=== PATIENT | male | born 1970 | race Caucasian/White ===

== ENCOUNTER 2018-06-13 15:16 | Inpatient (IN) ==
--- NOTE | 2018-06-13 17:01 | ED ---
HPI General Chief complaint: Psychiatric Symptoms Stated complaint: Psych eval Time Seen by Provider: 06/13/18 16:01 History of Present Illness HPI narrative: Patient is a 48-year-old male presents emergency department for evaluation of auditory hallucinations for the past 2 days with suicidal ideation. Patient states the voices in his head are telling him to kill himself. He states his been diagnosed with bipolar and schizophrenia before. States his been off his meds for 3 months ever since he was seen in [facility] in [place] and then moved to a [facility] here in [facility]. States symptoms are severe, gradually worsening over the past 48 hours, associated signs symptoms in context as above. Denies any physical complaints, denies any chest pain shortness of breath abdominal pain nausea vomiting diarrhea constipation. Related Data Home Medications Medication Instructions Recorded Confirmed No Known Home Medications 06/13/18 06/13/18 Allergies Allergy/AdvReac Type Severity Reaction Status Date / Time No Known Allergies Allergy Verified 06/13/18 15:35 Review of Systems ROS: all other systems reviewed are negative PMFSH Social History Social History Substance History: Past History Second Hand Smoke Exposure: No Smoking Status: Never smoker How Often Do You Have a Drink Containing Alcohol: Never Recent Travel in [facility] within the Last 8 Weeks: No Recent Out of Country Travel within the Last 8 Weeks: No Immunization History Tetanus Immunization: Unsure Exam Narrative Exam Narrative: GENERAL: Well-developed well-nourished, no obvious distress. SKIN: Focused skin assessment warm/dry. HEAD: Atraumatic. Normocephalic. EYES: Pupils equal and round. No scleral icterus. No injection or drainage. ENT: No nasal bleeding or discharge. Mucous membranes pink and moist. NECK: Trachea midline. No JVD. CARDIOVASCULAR: Regular rate and rhythm. No murmur appreciated. RESPIRATORY: No accessory muscle use. Clear to auscultation. Breath sounds equal bilaterally. GASTROINTESTINAL: Abdomen soft, non-tender, nondistended. Hepatic and splenic margins not palpable. MUSCULOSKELETAL: No obvious deformities. No clubbing. No cyanosis. No edema. NEUROLOGICAL: Awake and alert. No obvious cranial nerve deficits. Motor grossly within normal limits. Normal speech. PSYCHIATRIC: Depressed mood, normal affect, insight and judgment fair, endorses suicidal ideation and auditory hallucinations. Course Initial Documented Vital Signs Temperature 97.9 F 06/13/18 15:33 Pulse Rate 73 06/13/18 15:33 Blood Pressure 144/85 H 06/13/18 15:33 Pulse Oximetry 97 06/13/18 15:33 Last Documented Vital Signs Temperature 97.9 F 06/13/18 15:33 Pulse Rate 73 06/13/18 15:33 Blood Pressure 144/85 H 06/13/18 15:33 Pulse Oximetry 97 06/13/18 15:33 Medical Decision Making MDM Narrative Medical decision making narrative: Patient seen and examined by me Dr. Sawyer, signs symptoms consistent with an acute psychosis. He is been here before diagnosed malingering. He is never been admitted. He wants to see a psychiatrist under voluntary status. I informed him that probably would not happen until tomorrow morning and he is understanding and will stay overnight. Basic labs been drawn according to psychiatric protocol with the patient does not have any medical complaints to warrant further workup. He is medically cleared for psychiatric evaluate Medical Screen Exam Complete: Yes Emergency Medical Condition: Yes Discharge Plan Discharge Disposition Patient Disposition: Sign Out(ED Internal Use Only) Physicians Team ED Provider: Dominic Sawyer Primary Care Provider: Primary Care Nancy Soares Rxs /Orders / Referrals /Forms Prescriptions: No Action No Known Home Medications RF: 0 Status ED Status: Medically Cleared
[2018-06-13 18:35] LABS: Baso # (Auto) 0.1 th/mm3 (0.0-0.2); Baso % (Auto) 0.8 % (0.0-2.0); Eos # (Auto) 0.2 th/mm3 (0.0-0.4); Eos % (Auto) 2.4 % (0.0-4.0); Hematocrit 47.5 % (39.0-51.0); Hemoglobin 16.4 gm/dL (13.0-17.0); Lymph # (Auto) 2.1 th/mm3 (1.0-4.8); Lymph % (Auto) 27.9 % (9.0-44.0); Mean Corpuscular HGB Conc 34.5 % (32.0-36.0); Mean Corpuscular Hemoglobin 31.1 pg (27.0-34.0); Mean Corpuscular Volume 90.2 fL (80.0-100.0); Mean Platelet Volume 9.3 fL (7.0-11.0); Mono # (Auto) 0.6 th/mm3 (0.0-0.9); Mono % (Auto) 7.6 % (0.0-8.0); Neut # (Auto) 4.7 th/mm3 (1.8-7.7); Neut % (Auto) 61.3 % (16.0-70.0); Platelet Count 245 th/mm3 (150-450); Red Blood Count 5.27 mil/mm3 (4.50-5.90); Red Cell Distribution Width 13.2 % (11.6-17.2); White Blood Count 7.6 th/mm3 (4.0-11.0)
[2018-06-13 18:49] LABS: Amphetamine Screen,Urine Neg (Neg); Barbiturate Screen,Urine Neg (Neg); Cannabinoid Screen,Urine Neg (Neg); Cocaine Screen,Urine Neg (Neg)
--- NOTE | 2018-06-13 18:51 | ED ---
HPI - Psych - General Chief Complaint: Psychiatric Symptoms Stated Complaint: Psych eval Time Seen by Provider: 06/13/18 16:01 - Related Data Home Medications Medication Instructions Recorded Confirmed No Known Home Medications 06/13/18 06/13/18 Allergies Allergy/AdvReac Type Severity Reaction Status Date / Time No Known Allergies Allergy Verified 06/13/18 15:35 PMFSH - History History Provided By: Patient - Medical History Medical History: Medical History (Last Reviewed 04/25/18 @ 12:22 by ANNE MARIE Fofana) Bipolar 1 disorder Depression Schizo affective schizophrenia Seizure - Surgical History Surgical History: Surgical History (Last Reviewed 04/05/18 @ 06:34 by Zahira Marx) H/O knee surgery - Tobacco History Second Hand Smoke Exposure: No Smoking Status: Never smoker - Alcohol History How Often Do You Have a Drink Containing Alcohol: Never - Substance Use History Substance History: Past History - Travel History Recent Travel in the [facility] Within the Last 8 Weeks: No Recent Travel Out of the Country Within the Last 8 Weeks: No - Immunization History Tetanus Immunization: Unsure Psychiatric History - Psychiatric History Firearms in Home: No Mental Status Examination Consciousness: Alert Fund of Knowledge: Adequate Mood: Appropriate, Good Initial Documented Vital Signs Temperature 97.9 F 06/13/18 15:33 Pulse Rate 73 06/13/18 15:33 Blood Pressure 144/85 H 06/13/18 15:33 Pulse Oximetry 97 06/13/18 15:33 Last Documented Vital Signs Temperature 97.8 F 06/13/18 18:40 Pulse Rate 68 06/13/18 18:40 Respiratory Rate 12 06/13/18 18:40 Blood Pressure 137/97 H 06/13/18 18:40 Pulse Oximetry 98 06/13/18 18:40 MDM - Psych - Lab Data Result diagrams: 06/13/18 16:54 06/13/18 16:54 - Lab Data Lab Results 06/13/18 Range/Units 16:54 WBC 7.6 (4.0-11.0) th/mm3 RBC 5.27 (4.50-5.90) mil/mm3 Hgb 16.4 (13.0-17.0) gm/dL Hct 47.5 (39.0-51.0) % MCV 90.2 (80.0-100.0) fL MCH 31.1 (27.0-34.0) pg MCHC 34.5 (32.0-36.0) % RDW 13.2 (11.6-17.2) % Plt Count 245 (150-450) th/mm3 MPV 9.3 (7.0-11.0) fL Neut % (Auto) 61.3 (16.0-70.0) % Lymph % (Auto) 27.9 (9.0-44.0) % [place] % (Auto) 7.6 (0.0-8.0) % Eos % (Auto) 2.4 (0.0-4.0) % Baso % (Auto) 0.8 (0.0-2.0) % Neut # (Auto) 4.7 (1.8-7.7) th/mm3 Lymph # (Auto) 2.1 (1.0-4.8) th/mm3 [place] # (Auto) 0.6 (0.0-0.9) th/mm3 Eos # (Auto) 0.2 (0.0-0.4) th/mm3 Baso # (Auto) 0.1 (0.0-0.2) th/mm3 WBC Differential . Differential Comment Auto diff final
[2018-06-13 19:05] LABS: Opiate Screen,Urine Neg (Neg)
[2018-06-13 19:05] LABS: Alkaline Phosphatase 82 U/L (45-117); Total Protein 8.4 g/dL (6.4-8.2)
[2018-06-13 19:13] LABS: Alanine Aminotransferase 94 U/L (12-78); Albumin 4.2 g/dL (3.4-5.0); Anion Gap 12 meq/L (5-15); Aspartate Aminotransferase 46 U/L (15-37); Blood Urea Nitrogen 15 mg/dL (7-18); Calcium 9.2 mg/dL (8.5-10.1); Carbon Dioxide 23.3 meq/L (21.0-32.0); Chloride 105 meq/L (98-107); Glomerular Filtration Rate Greater Than 89 mL/min (>89); Glucose,Random 90 mg/dL (74-106); Magnesium 2.3 mg/dL (1.5-2.5); Potassium 3.7 meq/L (3.5-5.1); Sodium 140 meq/L (136-145)
--- NOTE | 2018-06-14 09:44 | P.HPPSY ---
Provisional Diagnosis Admission Date: June 13, 2018 15:16 Oxly I.: Schizoaffective Disorder, bipolar type Oxly II.: Opiate abuse in remission, early sustained Oxly III.: None reported Competence Certification of Person's Competence To Provide Express and Informed Consent I have personally examined Cesario Fierro, a person being served at [facility] on, June 14, 2018 0941. Express and informed consent means consent voluntarily given in writing, by a competent person, after sufficient explanation and disclosure of the subject matter involved to enable the person to make a knowing and willful decision without any element of force, fraud, deceit, duress, or other form of constraint or coercion. This person is 18 years of age or older, is not now known to be incompetent to consent to treatment with a guardian advocate, and does not have a health care surrogate or proxy currently making medical treatment decisions. I have found this person to be one of the following: [x] Competent to provide express and informed consent, as defined above, for voluntary admission to this facility and is competent to provide express and informed consent for treatment. He/she has the consistent capacity to make well reasoned, willful, and knowing decisions concerning his or her medical or mental health treatment. The person fully and consistently understands the purpose of the admission for examination/placement and is fully capable of personally exercising all rights assured under [place] Incompetent to provide express and informed consent to voluntary admission, and this is incompetent to provide express and informed consent to treatment. The person must be transferred to involuntary status and a petition for a guardian advocate filed with the Circuit Court. [] Refusing to provide express and informed consent to voluntary admission but is competent to provide express and informed consent for treatment. The person must be discharged or transferred to involuntary status. Form shall be completed within 24 hours of a person's arrival at the receiving facility and filed in the clinical record of each person: 1. Admitted on a voluntary basis 2. Permitted to provide express and informed consent to his/her own treatment 3. Allowed to transfer from involuntary to voluntary status 4. Prior to permitting a person to consent to his or her own treatment after having been previously found incompetent to consent to treatment. History of Present Illness Capacity: Has capacity Chief Complaint: command auditory hallucinations. History of Present Illness: History of Present Illness HPI narrative: Patient is a 48-year-old, , single, male, lives at [facility] the [facility], unemployed and applying for social security benefits, with reported psychiatric history of bipolar disorder, opiate use disorder in early remission, presents to emergency department voluntarily for evaluation of auditory hallucinations for the past 2 days with suicidal ideation. Patient states the voices tell him to kill himself. He reports he has been off his psychiatric meds for the past 3 months since his discharge from [facility]. States symptoms are severe, gradually worsening over the past 48 hours, associated signs symptoms in context as above. EMR is reviewed. The patient has been seen in our ED and 04/04/2018. He has never been admitted to our inpatient psychiatric unit. Current toxicology is negative. Patient is seen. He is alert and oriented. He continues to complain of voices telling him to hurt himself by doing things such as jumping off a high bridge. He states he is not hearing the voices right now. He does not appear internally stimulated. The patient also reports difficulty falling asleep. The remainder of psychiatric review of system is negative. Reports multiple past psychiatric admissions in [facility]. He is currently not on any psychiatric medications but indicates that in the past he has been prescribed Seroquel, Ambien, Zoloft and Vistaril. His last outpatient provider was at [facility] Family psychiatric history: Reports his mother has been diagnosed with schizophrenia and depression. - Inpatient Certification Estimated Total Length of Stay (Days): 8 Plans for Post Hospital Care: long term (Patient has a bed available at [facility] by the [facility] - History History Provided By: Patient - Medical / Surgical Hx Neg / Unobtainable Medical Problems Denied: Yes - Medical History Medical History: Medical History (Last Reviewed 04/25/18 @ 12:22 by ANNE MARIE Fofana) Bipolar 1 disorder Depression Schizo affective schizophrenia Seizure - Surgical History Surgical History: Surgical History (Last Reviewed 04/05/18 @ 06:34 by Zahira Marx) H/O knee surgery - Social History I have reviewed the patient's Social History: Yes - Tobacco History Second Hand Smoke Exposure: No Smoking Status: Never smoker - Alcohol History How Often Do You Have a Drink Containing Alcohol: Never - Substance Use History Substance History: Past History - Substance Use Type Heroin Status: Early Remission Route Used: Intravenously Reason for Use: Get High Comment: PT REPORTS 6 MONTHS CLEAN - Travel History Recent Travel in the [place] Within the Last 8 Weeks: No Recent Travel Out of the Country Within the Last 8 Weeks: No - Immunization History Tetanus Immunization: Unsure Medications and Allergies Allergies Allergy/AdvReac Type Severity Reaction Status Date / Time No Known Allergies Allergy Verified 06/13/18 15:35 Home Medications Medication Instructions Recorded Confirmed Type No Known Home Medications 06/13/18 06/13/18 History Results - Labs CBC & Chem 7: 06/13/18 16:54 06/13/18 16:54 Labs: Laboratory Results - last 24 hr 06/13/18 06/13/18 06/13/18 16:54 16:54 17:09 WBC 7.6 RBC 5.27 Hgb 16.4 Hct 47.5 MCV 90.2 MCH 31.1 MCHC 34.5 RDW 13.2 Plt Count 245 MPV 9.3 Neut % (Auto) 61.3 Lymph % (Auto) 27.9 [place] % (Auto) 7.6 Eos % (Auto) 2.4 Baso % (Auto) 0.8 Neut # (Auto) 4.7 Lymph # (Auto) 2.1 [place] # (Auto) 0.6 Eos # (Auto) 0.2 Baso # (Auto) 0.1 WBC Differential . Differential Comment Auto diff final Sodium 140 Potassium 3.7 Chloride 105 Carbon Dioxide 23.3 Anion Gap 12 BUN 15 Creatinine 0.81 Estimated GFR Greater than 89 Random Glucose 90 Calcium 9.2 Magnesium 2.3 Total Bilirubin 0.6 AST 46 H ALT 94 H Alkaline Phosphatase 82 Total Protein 8.4 H Albumin 4.2 TSH 1.040 Urine Opiates Screen Neg Ur Barbiturates Screen Neg Ur Amphetamines Screen Neg U Benzodiazepines Scrn Neg Urine Cocaine Screen Neg U Cannabinoids Screen Neg Serum Alcohol Less than 3 Exam Vital signs: Vital Signs 06/13/18 15:33 06/13/18 18:40 06/13/18 23:20 Temperature 97.9 F 97.8 F 98.2 F Pulse Rate 73 68 60 Respiratory Rate 12 18 Blood Pressure 144/85 H 137/97 H 149/93 H Pulse Oximetry 97 98 97 Intake & Output 02/22/19 02/23/19 02/23/19 18:59 06:59 18:59 Weight 87.997 kg Mental Status Examination Consciousness: Alert Orientation: x4 Motor Activity: Other Speech: Unremarkable Language: Adequate Fund of Knowledge: Adequate Attention and Concentration: Adequate (In bed) Memory: Unremarkable Mood: Appropriate, Good Affect: Appropriate Thought Process & Associations: Intact, Logical, Goal directed Thought Content: Hallucinations Hallucination Type: Auditory Delusion Type: None Suicidal Ideation: No Suicidal Plan: No Suicidal Intention: No Homicidal Ideation: No Homicidal Plan: No Homicidal Intention: No Insight: Adequate Judgment: Adequate Assessment and Plan - Assessment (1) Schizoaffective disorder, bipolar type Code(s): F25.0 - Schizoaffective disorder, bipolar type Status: Acute - Plan Plan: Estimated LOS: [8] days Admitted to inpatient locked psychiatric unit. Patient to participate in all milieu therapies and activities. We will begin Seroquel 25 mg p.o. at at bedtime. Justification for Continued Inpatient Stay: Patient at risk for self-harm if discharge. Request Healthcare Surrogate/Guardian Advocate?: No
[2018-06-14] MEDS ORDERED: Aluminum/Magnesium/Simethacone Susp 30 ML UDC PO PRN (09:46)
[2018-06-14] MEDS ORDERED: Acetaminophen 325 MG Tablet PO PRN (09:46)
[2018-06-14] MEDS ORDERED: QUEtiapine 25 MG Tablet PO SCH (21:00)
[2018-06-15 11:34] LABS: Anion Gap 5 meq/L (5-15); Blood Urea Nitrogen 17 mg/dL (7-18); Calcium 8.2 mg/dL (8.5-10.1); Carbon Dioxide 27.9 meq/L (21.0-32.0); Chloride 109 meq/L (98-107); Glomerular Filtration Rate Greater Than 89 mL/min (>89); Glucose,Random 89 mg/dL (74-106); Sodium 142 meq/L (136-145)
[2018-06-15 11:38] LABS: Chol/HDL Ratio 3.19 Ratio; Cholesterol 145 mg/dL (120-200); HDL Cholesterol 45.4 mg/dL (40.0-60.0); LDL Cholesterol,Calculated 79 mg/dL (0-99); Triglycerides 105 mg/dL (42-150)
--- NOTE | 2018-06-15 13:26 | ECG ---
Date Performed: 06/15/2018 Time Performed: 10:43:30 PTAGE: 48 years EKG: Sinus rhythm NORMAL ECG NO PREVIOUS TRACING DOCTOR: Arnav Maldonado Interpretating Date/Time 06/15/2018 13:25:28
[2018-06-15 13:42] LABS: Hemoglobin A1c 4.8 % (4.3-6.0)
--- NOTE | 2018-06-15 14:18 | P.PNPSY ---
Subjective Chief Complaint: command auditory hallucinations. Remarks: Patient seen for follow-up, chart reviewed, patient discussed with nursing staff ; we reviewed the patient's mood, thoughts, and behaviors from overnight and this morning. Nurse reports the patient has remained isolative and in his bed for most of the day. Patient was seen lying in bed after breakfast. He was easy to awaken. He complains of continued auditory hallucinations but feels safe on the unit. He complains of depressed mood and rates it as 7 out of 10. He complains of lack of efficacy from current dose of Seroquel and reports being on 600 mg of Seroquel in the past with good efficacy for his auditory hallucinations. We discussed risk benefits side effects alternatives and he agrees to continue titrating Seroquel and consider adding antidepressant once he is further stabilized. Mental Status Examination Consciousness: Alert Orientation: x4 Motor Activity: Other Speech: Unremarkable Language: Adequate Fund of Knowledge: Adequate Attention and Concentration: Adequate (In bed) Memory: Unremarkable Mood: Sad, Anxious Affect: Appropriate Thought Process & Associations: Intact, Logical, Goal directed Thought Content: Hallucinations Hallucination Type: Auditory Delusion Type: None Suicidal Ideation: No Suicidal Plan: No Suicidal Intention: No Homicidal Ideation: No Homicidal Plan: No Homicidal Intention: No Insight: Adequate Judgment: Adequate Assessment and Plan - Assessment (1) Schizoaffective disorder, bipolar type Code(s): F25.0 - Schizoaffective disorder, bipolar type Status: Acute - Plan Plan: June 15, 2018: Fair initial response to inpatient treatment as the patient feels safe and there have been no negative behaviors but he continues to endorse depressed mood and auditory hallucinations. Continue inpatient psychiatric treatment, voluntary status. Increase Seroquel to 50 mg in the morning and 150 mg at bedtime. Discharge planning: Patient will need discharge follow-up with psychiatry. Anticipate discharge later this week. Justification for Continued Inpatient Stay: Patient remains an elevated risk for self-harm by self neglect and will require further inpatient stabilization and preparation of a safe discharge plan. Moving patient to a less restrictive environment at this time may result in decompensation. Request Healthcare Surrogate/Guardian Advocate?: No
[2018-06-15] MEDS ORDERED: QUEtiapine 100 MG Tablet PO SCH (21:00)
[2018-06-16] MEDS: QUEtiapine 25 MG Tablet PO SCH (09:15)
--- NOTE | 2018-06-16 11:35 | P.PNPSY ---
Subjective Chief Complaint: command auditory hallucinations. Remarks: Subjective: Patient continues to complain of frightening command hallucinations to harm himself. He is very clear that at 600 mg of Seroquel these symptoms disappear but his current dosage is only total of 200 mg a day. Record reviewed patient discussed with nursing staff and medication ordered increase dosage of Seroquel to 300 mg plus a daily 50 mg. Titration upward will continue until patient shows some relief from symptoms. Review of Systems ROS no new complaints Mental Status Examination Consciousness: Alert Orientation: x4 Motor Activity: Other Speech: Unremarkable Language: Adequate Fund of Knowledge: Adequate Attention and Concentration: Adequate (In bed) Memory: Unremarkable Mood: Sad, Anxious Affect: Appropriate Thought Process & Associations: Intact, Logical, Goal directed Thought Content: Hallucinations Hallucination Type: Auditory (Commands to harm self) Delusion Type: None Suicidal Ideation: No Suicidal Plan: No Suicidal Intention: No Homicidal Ideation: No Homicidal Plan: No Homicidal Intention: No Insight: Adequate Judgment: Adequate Assessment and Plan - Assessment (1) Schizoaffective disorder, bipolar type Code(s): F25.0 - Schizoaffective disorder, bipolar type Status: Acute - Plan Plan: June 15, 2018: Fair initial response to inpatient treatment as the patient feels safe and there have been no negative behaviors but he continues to endorse depressed mood and auditory hallucinations. Continue inpatient psychiatric treatment, voluntary status. Increase Seroquel to 50 mg in the morning and 150 mg at bedtime. Discharge planning: Patient will need discharge follow-up with psychiatry. Anticipate discharge later this week. June 16, 2018: Increase Seroquel from 150 at at bedtime to 300 at at bedtime. Justification for Continued Inpatient Stay: June 16, 2018: Patient remains at risk for decompensation and suicide. Request Healthcare Surrogate/Guardian Advocate?: No
--- NOTE | 2018-06-17 09:18 | P.PNPSY ---
Subjective Chief Complaint: command auditory hallucinations. Remarks: Subjective: Patient continues complaining of command hallucinations telling him to harm himself. Medication changes will not be made. Concerned that the patient may be malingering. The social worker assistant who interviewed the patient also felt the patient was presenting symptoms seem you would guarantee his continued stay. Observing the patient directly I see no the patient. Discussed patient with the nursing staff and reviewed evening staff notes on the patient's mood behavior and sleep. The patient does support that the current dosage of Seroquel is helping him sleep and not causing any side effects. Review of Systems Patient continues to complain of auditory command hallucinations to harm himself Mental Status Examination Consciousness: Alert Orientation: x4 Motor Activity: Other Speech: Unremarkable Language: Adequate Fund of Knowledge: Adequate Attention and Concentration: Adequate (In bed) Memory: Unremarkable Mood: Sad, Anxious Affect: Appropriate Thought Process & Associations: Intact, Logical, Goal directed Thought Content: Hallucinations Hallucination Type: Auditory (Commands to harm self) Delusion Type: None Suicidal Ideation: Yes Suicidal Plan: No Suicidal Intention: No Homicidal Ideation: No Homicidal Plan: No Homicidal Intention: No Insight: Adequate Judgment: Adequate Assessment and Plan - Assessment (1) Schizoaffective disorder, bipolar type Code(s): F25.0 - Schizoaffective disorder, bipolar type Status: Acute - Plan Plan: June 15, 2018: Fair initial response to inpatient treatment as the patient feels safe and there have been no negative behaviors but he continues to endorse depressed mood and auditory hallucinations. Continue inpatient psychiatric treatment, voluntary status. Increase Seroquel to 50 mg in the morning and 150 mg at bedtime. Discharge planning: Patient will need discharge follow-up with psychiatry. Anticipate discharge later this week. June 16, 2018: Increase Seroquel from 150 at at bedtime to 300 at at bedtime. June 17, 2018: There does seem to be an element of malingering which will be further investigated with nursing staff. Justification for Continued Inpatient Stay: Patient continues to complain of command hallucinations to harm Request Healthcare Surrogate/Guardian Advocate?: No
[2018-06-17] MEDS: QUEtiapine 25 MG Tablet PO SCH (09:29)
[2018-06-18] MEDS: QUEtiapine 25 MG Tablet PO SCH (08:35)
--- NOTE | 2018-06-18 09:02 | P.DSPSY ---
Psychiatry Discharge Summary Inpatient Psychiatric care?: Yes Advance Directives: No Mental Health Advance Directive: No Health Care Proxy: No - Admission Admission Date: June 14, 2018 09:53 Brief History: History of Present Illness HPI narrative: Patient is a 48-year-old, , single, male, lives at [facility], unemployed and applying for social security benefits, with reported psychiatric history of bipolar disorder, opiate use disorder in early remission, presents to emergency department voluntarily for evaluation of auditory hallucinations for the past 2 days with suicidal ideation. Patient states the voices tell him to kill himself. He reports he has been off his psychiatric meds for the past 3 months since his discharge from [facility]. States symptoms are severe, gradually worsening over the past 48 hours, associated signs symptoms in context as above. EMR is reviewed. The patient has been seen in our ED and 04/04/2018. He has never been admitted to our inpatient psychiatric unit. Current toxicology is negative. Patient is seen. He is alert and oriented. He continues to complain of voices telling him to hurt himself by doing things such as jumping off a high bridge. He states he is not hearing the voices right now. He does not appear internally stimulated. The patient also reports difficulty falling asleep. The remainder of psychiatric review of system is negative. Reports multiple past psychiatric admissions in [facility]. He is currently not on any psychiatric medications but indicates that in the past he has been prescribed Seroquel, Ambien, Zoloft and Vistaril. His last outpatient provider was at [facility] Family psychiatric history: Reports his mother has been diagnosed with schizophrenia and depression. Tobacco Use In Past 30 Days: No How Often Do You Have a Drink Containing Alcohol: Never Hospital Course: Course in the hospital: Course in the hospital was marked by the patient's drug- seeking and complaints of suicidality voices except her without there being concomitant evidence of either depression or internal preoccupation. At the time of his discharge the patient decided he would like to be placed on Tegretol. Which she claims he takes for seizure disorder. Given the patient's lack of candor I do not feel comfortable after giving it some thought sending him out with a prescription for anything that he has not shown evidence of taking. I believe him to the patient were on Tegretol he would have a home prescription. I strongly suspect the patient is trading medications or using medications inappropriately. The patient does present symptoms consistent with a diagnosis of schizoaffective disorder but even his symptomatology is questionable. Patient will be discharged on only 300 mg a day of Seroquel which is adequate maintenance dosage. - Discharge Discharge Date: 06/18/18 - Discharge Diagnosis (1) Malingerer [conscious simulation] Code(s): Z76.5 - Malingerer [conscious simulation] Status: Acute (2) Opiate abuse, continuous Code(s): F11.10 - Opioid abuse, uncomplicated Status: Acute (3) Schizoaffective disorder, bipolar type Code(s): F25.0 - Schizoaffective disorder, bipolar type Status: Acute Discharge Disposition: Home - Discharge Instructions Discharge Diet: Regular Diet Activities You Can Perform: Regular- No Restrictions - Discharge Time > 30 minutes Mental Status Examination Consciousness: Alert Orientation: x4 Motor Activity: Other Speech: Unremarkable Language: Adequate Fund of Knowledge: Adequate Attention and Concentration: Adequate (In bed) Memory: Unremarkable Mood: Sad, Anxious Affect: Appropriate Thought Process & Associations: Intact, Logical, Goal directed Thought Content: Hallucinations Hallucination Type: Auditory (Commands to harm self) Delusion Type: None Suicidal Ideation: No Suicidal Plan: No Suicidal Intention: No Homicidal Ideation: No Homicidal Plan: No Homicidal Intention: No Insight: Adequate Judgment: Adequate Discharge/Advance Care Plan - Results Vital Signs: Last Vital Signs Temp 97.8 F 06/18/18 05:28 Pulse 65 06/18/18 05:28 Resp 16 06/18/18 05:28 BP 98/69 L 06/18/18 05:28 Pulse Ox 99 06/18/18 05:28 Lab Results: Laboratory Results Hemoglobin A1c 4.8 % (4.3-6.0) 06/15/18 10:32 Triglycerides 105 mg/dL (42-150) 06/15/18 10:32 Cholesterol 145 mg/dL (120-200) 06/15/18 10:32 LDL Cholesterol, Calc 79 mg/dL (0-99) 06/15/18 10:32 HDL Cholesterol 45.4 mg/dL (40.0-60.0) 06/15/18 10:32 TSH 1.040 uIU/mL (0.358-3.740) 06/13/18 16:54 Summary of Procedures: None Pending Results: None - Medications Number of antipsychotic medications at discharge: 1 - Discharge Care Plan Goals to Promote Your Health: * To prevent worsening of your condition and complications * To maintain your health at the optimal level Directions to Meet Your Goals: Take your medications as prescribed Follow your dietary instruction Follow activity as directed Keep your appointments as scheduled Take your immunizations and boosters as scheduled If your symptoms worsen call your PCP, if no PCP go to Urgent Care Center or Emergency Room For 12/11 questions related to your inpatient stay or results of tests pending at discharge, please contact Dr. Dashawn Jefferson MD at Smoking is Dangerous to Your Health. Avoid second hand smoking
== END 2018-06-18 11:30 | disposition home or self-care (01) | DRG 885 ==
LOC: NEPJ 15:16 → NEDA 06-14 09:53 → H260 06-14 10:50
PROVIDERS: ADMIT Psychiatry & Neurology Child & Adolescent Psychiatry; ATTEND Psychiatry & Neurology Child & Adolescent Psychiatry